=== PATIENT | male | born 1980 | race Caucasian/White ===

== ENCOUNTER 2020-02-23 21:47 | Emergency (ER) | payer MEDICAID ==
[~2020-02-23] VITALS: Ht 177.8 cm; Wt 72.7 kg
[2020-02-23 22:15] VITALS: Ht 177.8 cm; Wt 72.7 kg
[2020-02-23] MEDS ORDERED: D-AMPHETAMINE SALT PO (22:21)
[2020-02-23] MEDS ORDERED: XANAX2 MG PO (22:22)
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
[2020-02-23 23:05] LABS: BASOPHILS 0.2 % (0-2); EOSINOPHILS 1.5 % (0-7); HEMATOCRIT 43.6 % (42.0-54.0); IMMATURE GRANULOCYTES 0.1 % (0-5); MCH 30.3 pg (26.0-34.0); MCHC 34.4 g/dL (31.0-37.0); MCV 88.1 fL (80.0-100.0); MONOCYTES 8.2 % (2-11); PLATELET COUNT 230 10x3/uL (130-400); RBC 4.95 10x6/uL (4.20-6.10); RDW 13.6 % (11.5-14.5); WBC 9.1 10x3/uL (4.8-10.8)
[2020-02-23 23:07] LABS: BILIRUBIN NEGATIVE (NEGATIVE); KETONE NEGATIVE (NEGATIVE); NITRITE NEGATIVE (NEGATIVE); UROBILINOGEN NORMAL mg/dL (< 2)
[2020-02-23 23:13] LABS: CALC OSMOLALITY 272 mosm/kg (275-300); CALCIUM 9.4 mg/dL (8.5-10.1); CARBON DIOXIDE 32.1 mmol/L (21.0-32.0); CHLORIDE - SERUM 101 mmol/L (98-107); GLUCOSE 82 mg/dL (74-106); POTASSIUM - SERUM 3.5 mmol/L (3.5-5.1); SODIUM 137 mmol/L (136-145); UREA NITROGEN 12 mg/dL (7-18); eGFR NON AFRICAN AMERICAN 89 mL/min (90-120)
[2020-02-23 23:18] LABS: UDS - AMPHET POSITIVE QUAL (NEGATIVE); UDS - BARB NEGATIVE QUAL (NEGATIVE); UDS - BENZO POSITIVE QUAL (NEGATIVE); UDS - COCAINE NEGATIVE QUAL (NEGATIVE); UDS - OPIATE NEGATIVE QUAL (NEGATIVE); UDS - PCP NEGATIVE QUAL (NEGATIVE); UDS - THC POSITIVE QUAL (NEGATIVE)
[2020-02-23 23:20] LABS: ALBUMIN 4.3 g/dL (3.4-5.0); ALKALINE PHOSPHATASE 63 U/L (30-120); ALT (SGPT) 23 U/L (10-68); BILIRUBIN - TOTAL 1.18 mg/dL (0.2-1.3); PROTEIN - SERUM 7.5 g/dL (6.4-8.2)
[2020-02-24 01:28] VITALS: BP 132/89
== END 2020-02-24 01:28 | disposition home or self-care (01) ==
LOC: D.ER 21:47
PROVIDERS: Emergency Medicine
DX: F15.10 Other stimulant abuse, uncomplicated (principal); R45.851 Suicidal ideations